=== PATIENT | male | born 1985 | race Caucasian/White ===

== ENCOUNTER 2020-11-12 18:32 | Emergency (ER) | payer BC, OTHER ==
[2020-11-12] MEDS ORDERED: Sodium Chloride 0.9% 1,000 ML IV ONE (19:07)
[2020-11-12] MEDS ORDERED: Sodium Chloride 0.9% 10 ML Syringe FLUSH PRN (19:07)
[2020-11-12] MEDS ORDERED: LORazepam 2 MG/ML SDV IVPUSH PRN (19:08)
[2020-11-12] MEDS ORDERED: Ketorolac 30 MG/ML SDV IVPUSH ONE (19:08)
[2020-11-12] MEDS ORDERED: Ondansetron 4 MG/2 ML SDV IVPUSH ONE (19:08)
[2020-11-12 19:56] LABS: O2 DELIVERY DEVICE ROOM AIR
[2020-11-12 19:59] LABS: BASE EXCESS VENOUS 1 mmol/L ((-2)-3); BICARBONATE,VENOUS 27 mmol/L (23-28); O2 SATURATION VENOUS 43 %; PCO2 VENOUS 47 mmHG (41-51); PH,VENOUS 7.36 (7.31-7.41); PO2 VENOUS 25 mmHG
[2020-11-12 20:10] LABS: CHLORIDE,CL 106 mmol/L (98-107); SODIUM,NA 145 mmol/L (136-145)
[2020-11-12] MEDS ORDERED: Acetaminophen/HYDROcodone 325-5 MG Tab PO ONE (20:51)
[2020-11-12 20:53] LABS: ANION GAP 13.9 meq/L (7-15)
[2020-11-12 20:54] VITALS: BP 136/93; PULSE 63
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
[2020-11-12] MEDS ORDERED: LORazepam 1 MG Tab PO ONE (21:18)
== END 2020-11-12 21:30 | disposition home or self-care (01) ==
LOC: LL.ED 18:32
DX: N13.2 Hydronephrosis with renal and ureteral calculous obstruction (principal); K70.10 Alcoholic hepatitis without ascites; E10.65 Type 1 diabetes mellitus with hyperglycemia; Z72.0 Tobacco use; Z79.899 Other long term (current) drug therapy
CPT/HCPCS: 36415; 74176; 80053; 80307; 81001; 82803; 83605; 83690; 83735; 85025; 86140; 96374; 96375; 99285; A9270; J1885; J2060; J2405; J7030; 99284